=== PATIENT | female | born 1940 | race Caucasian/White ===

== ENCOUNTER 2019-03-12 22:48 | Emergency (ER) | payer MEDICAID, OTHER ==
[~2019-03-12] VITALS: Ht 157.5 cm; Wt 70.3 kg
[~2019-03-12 22:48] MED LIST: ASPI-1154 PO; LOSA100T3 PO; NEBI20TA2 PO
[2019-03-12 23:29] VITALS: BP_SYST 176
[2019-03-13] MEDS ORDERED: KETOROLAC TROMETHAMINE 15 MG VIAL IM ONE
[2019-03-13 01:49] VITALS: BP_SYST 176
== END 2019-03-13 01:49 | disposition home or self-care (01) ==
LOC: SED 22:48
DX: S60.221A Contusion of right hand, initial encounter (principal); S80.02XA Contusion of left knee, initial encounter; I10 Essential (primary) hypertension; E78.5 Hyperlipidemia, unspecified; Z88.8 Allergy status to other drugs, medicaments and biological substances; Z79.899 Other long term (current) drug therapy; W18.40XA Slipping, tripping and stumbling without falling, unspecified, initial encounter; Y93.89 Activity, other specified; Y92.89 Other specified places as the place of occurrence of the external cause; Y99.8 Other external cause status
CPT/HCPCS: 73130; 73564; 96372; 99283; J1885

== ENCOUNTER 2019-07-03 00:55 | Inpatient (IN) | payer OTHER, MEDICAID ==
[~2019-07-03] VITALS: Ht 160 cm; Wt 70.8 kg
[~2019-07-03 00:55] MED LIST changes: -ASPI-1154 PO; +ASPI-1457 PO
[2019-07-03 01:05] VITALS: BP_SYST 170
--- NOTE | 2019-07-03 01:05 | NUR ---
Pt placed to ER bed 02, to gown and desk monitor. Pt c/o H/A x 1 day. Denies N/V, no visual deficits, focal neurodeficits, or weakness reported. Denies C/P or SOB.
--- NOTE | 2019-07-03 01:10 | NUR ---
Dr. James at bedside.
--- NOTE | 2019-07-03 02:10 | NUR ---
Pt c/o nausea. Dr. James notified.
[2019-07-03] MEDS ORDERED: ONDANSETRON HCL 4 MG/2 ML VIAL IVP ONE (02:15)
[2019-07-03] MEDS ORDERED: MORPHINE 2 MG/ML INJ. SYRINGE IVP ONE (02:15)
--- NOTE | 2019-07-03 02:30 | NUR ---
# 20 gauge angiocath placed to LAC. Use of asceptic technique. Opsite placed over site. Blood return noted. Blood for lab drawn from site. Flushed with 10 cc of normal saline. No evidence of infiltration noted. Patient tolerated well.
[2019-07-03 02:48] LABS: BASOPHILS % (AUTO) 0.6 % (0.0-2.0); EOSINOPHILS # (AUTO) 0.2 K/uL (0.0-0.4); EOSINOPHILS % (AUTO) 2.8 % (0.0-4.0); HEMATOCRIT 40.1 % (36-48); HEMOGLOBIN 13.4 g/dL (12.0-16.0); LYMPHOCYTES % (AUTO) 25.4 % (20.5-51.5); MEAN CORPUSCULAR HEMOGLOBIN 31 pg (27-31); MEAN CORPUSCULAR HGB CONC 33 % (32-36); MEAN CORPUSCULAR VOLUME 92 fL (79.0-98.0); MONOCYTES # (AUTO) 0.7 K/uL (0.0-1.0); MONOCYTES % (AUTO) 8.9 % (1.7-9.3); NEUTROPHILS # (AUTO) 4.8 K/uL (1.8-7.7); NEUTROPHILS % (AUTO) 62.3 % (40.0-70.0); PLATELET COUNT (AUTO) 135 K/uL (130-430); RED BLOOD CELL COUNT(AUTO) 4.38 MIL/uL (4.2-6.2); RED CELL DISTRIBUTION WIDTH 15.3 % (9.0-15.0); WHITE BLOOD COUNT (AUTO) 7.7 K/uL (4.8-10.8)
[2019-07-03 03:02] LABS: ANION GAP 7 (5-15); CALCIUM 9.2 mg/dL (8.4-11.0); CHLORIDE 104 mmol/L (98-107); CREATININE 0.75 mg/dL (0.55-1.30); GLUCOSE 110 mg/dL (70-99); POTASSIUM 4.2 mmol/L (3.5-5.1); SODIUM SERUM 141 mmol/L (136-145); UREA NITROGEN, BLOOD 16 mg/dL (8-21)
[2019-07-03 03:06] LABS: PROTHROMBIN TIME 10.4 SECS (9.5-12.5)
[2019-07-03 03:13] LABS: ALANINE AMINOTRANSFERASE 25 U/L (12-78); ALBUMIN 3.8 g/dL (3.4-4.8); ASPARTATE AMINOTRANSFERASE 23 U/L (10-37); TOTAL BILIRUBIN 0.3 mg/dL (0.0-1.0)
[2019-07-03] MEDS ORDERED: ASPIRIN 81 MG TAB.CHEW PO ONE (03:30)
--- NOTE | 2019-07-03 04:00 | NUR ---
Pt resting quietly with eyes closed, even and non-labored respirations. VSS, NAD.
--- NOTE | 2019-07-03 05:00 | NUR ---
Pt to CT via stretcher in stable condition.
--- NOTE | 2019-07-03 05:10 | NUR ---
Pt returns from CT, placed on library monitor. Denies c/o nausea, no C/P or SOB. VSS, NAD. No needs verbalized at this time.
[2019-07-03] MEDS ORDERED: IOHEXOL 350 mgI/mL, 150 ML INFUS..BTL IV ONE (05:21)
--- NOTE | 2019-07-03 06:00 | NUR ---
Pt alert and responsive, denies c/o pain or discomfort, VSS, NAD. No needs verbalized at this time.
--- NOTE | 2019-07-03 07:04 | NUR ---
Spoke with Chelsey, Life Sciences Manager from [facility] and pt information provided.
--- NOTE | 2019-07-03 07:30 | NUR ---
Report from Otto BELL
--- NOTE | 2019-07-03 08:00 | NUR ---
Chelsey residential case manager (C.O) calls back to give authorization number: [id number]
--- NOTE | 2019-07-03 08:15 | NUR ---
Pt report given to RAY Barton.
[2019-07-03] MEDS ORDERED: MAGNESIUM SULFATE 50 ML IV PRN (08:30)
[2019-07-03] MEDS ORDERED: LORazepam 2 MG/ML VIAL IVP PRN (08:30)
[2019-07-03] MEDS ORDERED: DOCUSATE SODIUM 100 MG CAPSULE PO PRN (08:30)
[2019-07-03] MEDS ORDERED: CARISOPRODOL 350 MG TABLET PO ONE (08:30)
[2019-07-03] MEDS ORDERED: ZOLPIDEM TARTRATE 5 MG TABLET PO PRN (08:30)
[2019-07-03] MEDS ORDERED: POTASSIUM CHLORIDE 20 MEQ TAB.PRT.SR PO PRN (08:30)
[2019-07-03] MEDS ORDERED: ONDANSETRON HCL 4 MG/2 ML VIAL IVP PRN (08:30)
[2019-07-03] MEDS ORDERED: MORPHINE 2 MG/ML INJ. SYRINGE IVP PRN (08:30)
[2019-07-03] MEDS ORDERED: MUPIROCIN 2% TOPICAL OINTMENT 22 GM NS PRN (08:30)
[2019-07-03] MEDS: LOSARTAN POTASSIUM 50 MG TABLET (COZAAR) PO SCH (09:00)
[2019-07-03] MEDS: METOPROLOL TARTRATE 50 MG TABLET PO SCH ×3 (09:00→21:00)
[2019-07-03] MEDS: ASPIRIN 81 MG TABLET(ECOTRIN) PO SCH (09:00)
[2019-07-03] MEDS ORDERED: LIP10 PO (09:16)
--- NOTE | 2019-07-03 09:55 | NUR ---
Patient will be admitted to care of Dr Guaman. Admitted to Tele unit. Will go to room 111B. Belongings list completed. Complete and up to date summary report printed. Report to be given at bedside with opportunity for questions. Transfer to Tele 111B via ACLS protocol. Licensed nurse present. IV present no signs or symptoms of infiltration.
--- NOTE | 2019-07-03 10:01 | NUR ---
ADMISSION NOTE Received patient from ER via neil, received report from YENIFER BELL. Patient admitted with diagnosis of PNEUMONIA. Patient oriented to hospital routine, call light, toileting and safety-patient verbalized understanding.
[2019-07-03 10:18] VITALS: BP_SYST 156
[2019-07-03 10:27] LABS: BILIRUBIN,URINE NEGATIVE (NEGATIVE); CLARITY/URINE CLEAR (CLEAR); GLUCOSE,URINE NEGATIVE (NEGATIVE); KETONES,URINE NEGATIVE (NEGATIVE); LEUKOCYTE ESTERASE ,URINE NEGATIVE (NEGATIVE); NITRITE, URINE NEGATIVE (NEGATIVE); PROTEIN URINE NEGATIVE (NEGATIVE); UROBILINOGEN,URINE 0.2 (0.2-1.0)
[2019-07-03 10:36] LABS: BLOOD, URINE TRACE (NEGATIVE); COLOR,URINE YELLOW (YELLOW)
[2019-07-03] MEDS ORDERED: AMLO2.5T2 PO (10:48)
[2019-07-03] MEDS: PIPERACILLIN/TAZO 3.375 GM in NS 50 ML IV SCH ×3 (10:59→20:45)
[2019-07-03 11:00] LABS: BACTERIA,URINE RARE /HPF (None Seen); MUCUS,URINE 1+ /LPF (None Seen); RBC,URINE 0-3 /HPF (0-3); WBC,URINE 0-3 /HPF (0-3)
[2019-07-03] MEDS: HEPARIN SODIUM,PORCINE 5000 UNITS/ML VIAL SUBCUT SCH ×2 (11:00→20:58)
--- NOTE | 2019-07-03 11:38 | NUR ---
Neuro consult: Dr. Pitt at [facility] and aware of consult.
--- NOTE | 2019-07-03 11:43 | NUR ---
Cardiac consult called: for Dr. Vee (Dr. Ruiz second butler), regarding type II [place], ordered by Dr. Guaman, spoke with Megan.
[2019-07-03] MEDS: NACL 0.9% 1,000 ML IV SCH (11:56)
--- NOTE | 2019-07-03 12:04 | NUR ---
pulmo consult Spoke to Cocoluis cartwright, Dr Fay is arch cushion press operator for Dr Luna and made aware.
[2019-07-03 15:48] VITALS: BP_SYST 137
--- NOTE | 2019-07-03 19:35 | NUR ---
OPENING NOTES Pt and endorsement received from day shift nurse. Pt is AAOx4, lying in bed. Son at bedside. Pt in IVF with NS at 50ml/hr and infusing well on left AC G20. No complains of pain at this time. No signs of acute distress or SOB noted. Encouraged to use call light when needed. Safety precautions in place with 2 side rails up, wheels locked, and bed in lowest level. Call light with pt. Will continue to monitor.
[2019-07-03 20:42] VITALS: BP_SYST 143
[2019-07-03] MEDS: MORPHINE 2 MG/ML INJ. SYRINGE IVP PRN (21:16)
--- NOTE | 2019-07-03 21:16 | NUR ---
MED PASS/PAIN MED Pt complained of headache with a scale of 4/10. Morphine 1mg IVP given as ordered. Educated on safety and side effects like dizziness, pt verbalized understanding. Other due meds given except for Metoprolol, pt states she had an allergic reaction in past. Unable to return medicine to [facility] because it was opened, discarded medicine in RX destroyer. Will endorse about Metoprolol medication to day shift.
--- NOTE | 2019-07-04 00:05 | NUR ---
ROUNDS Pt is resting in bed with both eyes closed, with visible chest rise and fall with non-labored breathing noted. No complains of pain and no signs of acute distress noted. IVF infusing well. Safety precautions in place and call light with pt. Will continue to monitor.
[2019-07-04 01:04] VITALS: BP_SYST 131
--- NOTE | 2019-07-04 01:30 | NUR ---
ROUNDING/IV REPLACEMENT PATIENT IV WAS LEAKING. IV WAS TAKEN OUT AND TIP WAS INTACT. NO SIGNS OF ACTIVE BLEED. NEW IV WAS INSERTED. PATIENT TOLERATED WELL. WILL CONTINUE TO MONITOR. Addendum: 07/05/19 at 0503 by Dagoberto Reyna RN WRONG DATE
[2019-07-04] MEDS: PIPERACILLIN/TAZO 3.375 GM in NS 50 ML IV SCH ×2 (02:16→08:05)
--- NOTE | 2019-07-04 02:16 | NUR ---
ROUNDS Pt is AAOx4 and lying in bed. No complains of pain and no signs of acute distress noted. Encouraged pt to rest and sleep. IVF infusing well. Safety precautions in place and call light with pt. Will continue to monitor.
--- NOTE | 2019-07-04 04:22 | NUR ---
ROUNDS Pt is resting in bed with both eyes closed, with visible chest rise and fall with non-labored breathing noted. Pt is easily arousable. No signs of acute distress noted. No needs at this time. IVF infusing well. Safety precautions in place and call light with pt. Will continue to monitor.
[2019-07-04] MEDS: NACL 0.9% 1,000 ML IV SCH (04:30)
[2019-07-04 06:42] LABS: BASOPHILS % (AUTO) 0.5 % (0.0-2.0); EOSINOPHILS # (AUTO) 0.1 K/uL (0.0-0.4); EOSINOPHILS % (AUTO) 2.3 % (0.0-4.0); HEMATOCRIT 38.3 % (36-48); HEMOGLOBIN 12.7 g/dL (12.0-16.0); LYMPHOCYTES # (AUTO) 1.7 K/uL (1.0-5.5); MEAN CORPUSCULAR HEMOGLOBIN 31 pg (27-31); MEAN CORPUSCULAR HGB CONC 33 % (32-36); MEAN CORPUSCULAR VOLUME 92 fL (79.0-98.0); MONOCYTES # (AUTO) 0.6 K/uL (0.0-1.0); MONOCYTES % (AUTO) 10.1 % (1.7-9.3); NEUTROPHILS # (AUTO) 3.2 K/uL (1.8-7.7); NEUTROPHILS % (AUTO) 57.1 % (40.0-70.0); PLATELET COUNT (AUTO) 126 K/uL (130-430); RED BLOOD CELL COUNT(AUTO) 4.15 MIL/uL (4.2-6.2); WHITE BLOOD COUNT (AUTO) 5.5 K/uL (4.8-10.8)
--- NOTE | 2019-07-04 06:44 | NUR ---
CLOSING NOTES Pt is resting in bed with both eyes closed, with visible chest rise and fall with non-labored breathing noted. No complains of pain or discomfort at this time. No signs of acute distress or SOB noted. All needs attended throughout the shift. IVF infusing well. Safety precautions maintained with 2 side rails up, wheels locked, and bed in lowest level. Call light with pt. Will continue to monitor.
[2019-07-04 06:57] LABS: ANION GAP 4 (5-15); CALCIUM 8.8 mg/dL (8.4-11.0); CHLORIDE 105 mmol/L (98-107); CHOLESTEROL 176 mg/dL (<200); CREATININE 1.04 mg/dL (0.55-1.30); GLUCOSE 93 mg/dL (70-99); HDL CHOLESTEROL 60 mg/dL (>55); LDL CHOLESTEROL 100 mg/dL (<100); POTASSIUM 3.9 mmol/L (3.5-5.1); SODIUM SERUM 137 mmol/L (136-145); TRIGLYCERIDES 62 mg/dL (30-150); UREA NITROGEN, BLOOD 18 mg/dL (8-21)
[2019-07-04 08:05] VITALS: BP_SYST 137
--- NOTE | 2019-07-04 08:05 | NUR ---
Routine Patient resting comfortably in bed with no complaint of pain or discomfort. Scheduled medications given per order. Patient stable at this time.
[2019-07-04] MEDS: ASPIRIN 81 MG TABLET(ECOTRIN) PO SCH (08:06)
[2019-07-04] MEDS: LOSARTAN POTASSIUM 50 MG TABLET (COZAAR) PO SCH (08:06)
[2019-07-04] MEDS: METOPROLOL TARTRATE 50 MG TABLET PO SCH ×2 (08:06→21:00)
[2019-07-04] MEDS: HEPARIN SODIUM,PORCINE 5000 UNITS/ML VIAL SUBCUT SCH ×2 (08:10→21:49)
--- NOTE | 2019-07-04 12:02 | NUR ---
CONSULTATION PAGED/CALLED Reason for Consultation: FEVERS,NECK RIGIDITY Person Who was Notified: INEZ Consulting Physician: Clothes Drier Repairer Specialty: Ordering Physician:
[2019-07-04 12:15] VITALS: BP_SYST 128
[2019-07-04] MEDS: ACYCLOVIR IV 500 MG in D5W 100 ML IV SCH (14:47)
[2019-07-04 16:25] VITALS: BP_SYST 127
[2019-07-04 19:30] VITALS: BP_SYST 154
--- NOTE | 2019-07-04 19:50 | NUR ---
INITIAL ASSESSMENT AT INITIAL ASSESSMENT PATIENT IS STABLE AND LAYING IN BED. FAMILY MEMBER IS BY BEDSIDE. NO SIGNS OR SYMPTOMS OF RESPIRATORY DISTRESS NOTED. EDUCATED PATIENT WIND PROJECTS SUPERVISOR LIGHT. PATIENT SUCCESSFULLY DEMONSTRATES USAGE OF CALL LIGHT. PLAN OF CARE DISCUSSED WITH PATIENT AND FAMILY AT THIS TIME. BED IS LOCKED, ALARMED, AND AT THE LOWEST POSITION. PATIENT VERBALIZED NO PAIN AT THIS MOMENT. FALL, SAFETY, AND RESPIRATORY PRECAUTION WILL BE PLACED THROUGHOUT THE SHIFT.
--- NOTE | 2019-07-04 21:45 | NUR ---
ROUNDING PATIENT IS STABLE AND TALKING TO FAMILY MEMBER. NO SIGNS OR SYMPTOMS OF RESPIRATORY DISTRESS NOTED. CALL LIGHT IN REACH. BED LOCKED, ALARMED, AT THE LOWEST POSITION. WILL CONTINUE TO MONITOR.
[2019-07-04] MEDS: ACETAMINOPHEN 325 MG TABLET PO PRN (23:06)
[2019-07-05] VITALS: BP_SYST 146
[2019-07-05] MEDS: ACYCLOVIR IV 500 MG in D5W 100 ML IV SCH ×4 (00:20→22:00)
[2019-07-05] MEDS: NACL 0.9% 1,000 ML IV SCH ×2 (01:10→20:30)
--- NOTE | 2019-07-05 01:30 | NUR ---
ROUNDING/IV REPLACEMENT PATIENT IV WAS LEAKING. IV WAS TAKEN OUT AND TIP WAS INTACT. NO SIGNS OF ACTIVE BLEED. NEW IV WAS INSERTED. PATIENT TOLERATED WELL. WILL CONTINUE TO MONITOR.
--- NOTE | 2019-07-05 03:30 | NUR ---
ROUNDING PATIENT IS STABLE AND SLEEPING. NO SIGNS OR SYMPTOMS OF RESPIRATORY DISTRESS NOTED. CALL LIGHT IN REACH. BED LOCKED, ALARMED, AT THE LOWEST POSITION. WILL CONTINUE TO MONITOR.
[2019-07-05] MEDS: ACETAMINOPHEN 325 MG TABLET PO PRN (05:52)
--- NOTE | 2019-07-05 06:40 | NUR ---
CLOSING NOTES PATIENT IS LAYING IN BED. NO SIGNS OR SYMPTOMS OF RESPIRATORY DISTRESS NOTED. CALL LIGHT IS WITHIN REACH. BED IS LOCKED, ALARMED, AND AT THE LOWEST POSITION. PATIENT HEADACHE HAS BEEN MANAGED THROUGHOUT THE SHIFT. FALL, SAFETY, AND ASPIRATION PRECAUTION HAS BEEN PLACED THROUGHOUT THE SHIFT. WILL CONTINUE TO MONITOR UNTIL AM SHIFT REPORT IS GIVEN TO AM NURSE.
[2019-07-05 07:24] LABS: BASOPHILS % (AUTO) 0.6 % (0.0-2.0); EOSINOPHILS # (AUTO) 0.2 K/uL (0.0-0.4); EOSINOPHILS % (AUTO) 4.3 % (0.0-4.0); HEMATOCRIT 37.4 % (36-48); HEMOGLOBIN 12.5 g/dL (12.0-16.0); LYMPHOCYTES # (AUTO) 1.7 K/uL (1.0-5.5); LYMPHOCYTES % (AUTO) 34.8 % (20.5-51.5); MEAN CORPUSCULAR HEMOGLOBIN 31 pg (27-31); MEAN CORPUSCULAR HGB CONC 33 % (32-36); MEAN CORPUSCULAR VOLUME 92 fL (79.0-98.0); MONOCYTES # (AUTO) 0.5 K/uL (0.0-1.0); MONOCYTES % (AUTO) 9.5 % (1.7-9.3); NEUTROPHILS # (AUTO) 2.5 K/uL (1.8-7.7); NEUTROPHILS % (AUTO) 50.8 % (40.0-70.0); PLATELET COUNT (AUTO) 125 K/uL (130-430); RED BLOOD CELL COUNT(AUTO) 4.08 MIL/uL (4.2-6.2); RED CELL DISTRIBUTION WIDTH 14.6 % (9.0-15.0)
[2019-07-05 07:55] VITALS: BP_SYST 151
--- NOTE | 2019-07-05 07:55 | NUR ---
INITIAL ROUNDS Received pt AAOx4, no s/s resp distress, no c/o pain or discomfort. Plan of care for the day reviewed with pt-pt verbalized her understanding. IVF infusing well to left hand at ordered rate with no s/s infiltration to site. Pt ambulated to the bathroom with steady gait, voided. Pain management, disease process, skin and safety discussed-teach back done. Call light within reach.
[2019-07-05 09:00] LABS: ANION GAP 5 (5-15); CALCIUM 8.7 mg/dL (8.4-11.0); CHLORIDE 105 mmol/L (98-107); CREATININE 0.79 mg/dL (0.55-1.30); GLUCOSE 106 mg/dL (70-99); POTASSIUM 3.8 mmol/L (3.5-5.1); SODIUM SERUM 138 mmol/L (136-145); UREA NITROGEN, BLOOD 18 mg/dL (8-21)
--- NOTE | 2019-07-05 10:30 | NUR ---
Nutrition Update Levy Scale 17 noted. Pt admitted for pneumonia. Diet: cardiac BMI: 27.6 kg/m2 RD to follow per nutrition care standards.
--- NOTE | 2019-07-05 10:40 | NUR ---
TO MRI Pt left floor via wheelchair to MRI in no distress.
[2019-07-05 12:05] VITALS: BP_SYST 177
--- NOTE | 2019-07-05 12:05 | NUR ---
RESUME CARE Received the report from Concepcion at bedside. Patient resting in the bed. No acute distress. AAO X 4. Patient just back from MRI of head. Per Concepcion morning meds not given yet but she will give it. Skin warm and dry to touch. IV intact to left hand, no redness, no swelling, patent. Family at bedside. Discussed safety issue, use call light when needs help, and plan of care, verbally understanding. Safety measure maintained. Bed locked in low position, side rails up. Call light within reached. SBAR received and will resume the care and continue to monitor.
[2019-07-05] MEDS: LOSARTAN POTASSIUM 50 MG TABLET (COZAAR) PO SCH (12:14)
[2019-07-05] MEDS: ASPIRIN 81 MG TABLET(ECOTRIN) PO SCH (12:15)
[2019-07-05] MEDS: HEPARIN SODIUM,PORCINE 5000 UNITS/ML VIAL SUBCUT SCH ×2 (12:22→20:40)
[2019-07-05] MEDS: MORPHINE 2 MG/ML INJ. SYRINGE IVP PRN (12:24)
--- NOTE | 2019-07-05 12:45 | NUR ---
HANDS OFF Report given to registry, Luciana at bedside. Patient resting in the bed. No acute distress. Awake Luciana will continue to take care her. Safety measure maintained. Call light within reached. SBAR given to Luciana.
--- NOTE | 2019-07-05 12:50 | NUR ---
PATIENT RECEIVED IN STABLE CONDITIONS. ASSESSED PT: HEART: RATE AND RHYTHM WNL, LUNGS: BREATH SOUNDS WERE CLEARED THROUGHOUT, PT STATED THAT HER COUGH HAS REDUCED. IV IS PATENT IN LEFT HAND. PATIENT MADE AWARE OF HER PLAN OF CARE
--- NOTE | 2019-07-05 13:25 | NUR ---
DC Planning: late entry (1209): notified pt about transfer to insurance network per [facility]. The pt agreed with the transfer. Informed for in net work hp are, Dani , Kevin , Bernardino Nunes . Cm to updated pt once got more info from [employer] piano case and bench assembler. >> per Soheila /Marcela TALLEY # [phone], the pt will be transferred to [facility], pending room assignment. She will be calling nursing unit to to the transfer instruction. She expected to transfer the pt next shift. The ambulance transfer was arranged thru Stephanie, [facility] transfer tel # [phone] and is on will call trip # [phone]. Addendum: 07/05/19 at 1338 by Pedro Landa RN >> RAY Javier/Matteo ammunition officer made aware of the above info.
--- NOTE | 2019-07-05 13:46 | NUR ---
DC Planning: Transfer to [facility]: Per Soheila given bed assignment room 221-2, RN to report # [phone]. MARIYA Loredo transfer tel # [phone] booking trip # [phone] , picked edge sewing machine operator time at 1600. Matteo patrol community service officer to assist with the discharge package and to notify the on duty nurse. Cm notified the pt and her spouse at beside as well. Addendum: 07/05/19 at 1539 by Pedro Landa RN Per Soheila: changing the transfer time to 8 pm. -- RAY Prabhakar made aware >> Pt and her son/Neto (who was at bedside) made aware. Both agreed with the transfer at 8 pm today.
[2019-07-05 14:18] VITALS: BP_SYST 177
--- NOTE | 2019-07-05 14:38 | NUR ---
GAVE REPORT TO RECEIVING RAY LANE FROM [facility]. ALL QUESTIONS ANSWERED AND PHONE NUMBER WAS GIVEN TO HER IN CASE SHE HAS FURTHER QUESTIONS
[2019-07-05 16:14] VITALS: BP_SYST 151
--- NOTE | 2019-07-05 16:18 | NUR ---
PATIENT AGREE AND SIGNED THE TRANSFER FORM AND THE DC PACKET. SON AT THE BEDSIDE AND WAS ALSO MADE AWARE
--- NOTE | 2019-07-05 18:14 | NUR ---
PT SITTING IN BED. EATING DINNER. NO COMPLAINTS AT THIS TIME. PT MADE AWARE THAT THE AMBULANCE WILL COME PICK HER UP BY 8PM
--- NOTE | 2019-07-05 19:11 | NUR ---
GAVE REPORT TO MOLECULAR PATHOLOGIST RN, FRANCESCA RN. RECEIVING RN MADE AWARE OF PT GETTING DISCHARGE TO [facility] AND PROSTHETIC TECHNICIAN TIME IS AT 8PM ENDORSED PT IN STABLE CONDITIONS. ALL QUESTIONS ANSWERED
[2019-07-05] MEDS ORDERED: hydrALAZINE HCL 20 MG/ML VIAL IVP SCH (20:30)
--- NOTE | 2019-07-05 21:07 | NUR ---
AMBULANCE ARRANGED CALLED [facility] ([phone]) SPOKE WITH MARISA, PATIENT [facility]. CIFUENTES @ 2200 Addendum: 07/05/19 at 2205 by Noemí Marie [facility]/ [facility] ([phone])
--- NOTE | 2019-07-05 22:28 | NUR ---
Ambulance here for transfer. Belongings taken. Son at the bedside.
[2019-07-06 09:09] LABS: WEST NILE VIRUS, IgG, SERUM Negative (Negative)
== END 2019-07-05 22:28 | disposition short-term general hospital (02) | DRG 97 ==
LOC: SED 00:55 → STU 08:23 → SMU 07-05 12:58
PROVIDERS: ADMIT General Practice; ATTEND General Practice
DX: G03.0 Nonpyogenic meningitis (principal); J69.0 Pneumonitis due to inhalation of food and vomit; I21.A1 Myocardial infarction type 2; I10 Essential (primary) hypertension; E78.5 Hyperlipidemia, unspecified; G43.919 Migraine, unspecified, intractable, without status migrainosus; M47.892 Other spondylosis, cervical region; G44.219 Episodic tension-type headache, not intractable; Z88.8 Allergy status to other drugs, medicaments and biological substances; Z79.899 Other long term (current) drug therapy; Z90.49 Acquired absence of other specified parts of digestive tract; Z90.722 Acquired absence of ovaries, bilateral; Z79.82 Long term (current) use of aspirin; Z84.89 Family history of other specified conditions
CPT/HCPCS: 36415; 36600; 70450-TC; 70551; 71045; 71275; 80048; 80053; 80061; 81000-TC; 82803-TC; 83036; 83605; 83735-TC; 83880; 84484; 85025; 85379; 85610-TC; 85651-TC; 85730-TC; 86694; 86788; 86789; 87040-TC; 93005; 93306; 93970; 96365; 96375; 96376; 99285; G0378; J0133; J0360; J0696; J1644; J1956; J2270; J2405; J2543; J7030; J7060; Q9967

== ENCOUNTER 2022-07-08 11:19 | Inpatient (IN) | payer OTHER, MEDICAID ==
[~2022-07-08] VITALS: Ht 157.5 cm; Wt 73.0 kg
[~2022-07-08 11:19] MED LIST changes: -NEBI20TA2 PO
[2022-07-08 11:29] VITALS: BP_SYST 167
--- NOTE | 2022-07-08 11:45 | NUR ---
DR MENCHACA IN ROOM FOR EXAM
[2022-07-08 12:25] LABS: ANION GAP 9 (5-15); BASOPHILS % (AUTO) 0.6 % (0.0-2.0); CALCIUM 9.5 mg/dL (8.4-11.0); CHLORIDE 105 mmol/L (98-107); EOSINOPHILS # (AUTO) 0.2 K/uL (0.0-0.4); GLUCOSE 101 mg/dL (70-99); HEMATOCRIT 39.2 % (36-48); LYMPHOCYTES % (AUTO) 35.3 % (20.5-51.5); MEAN CORPUSCULAR HEMOGLOBIN 30 pg (27-31); MEAN CORPUSCULAR HGB CONC 33 % (32-36); MEAN CORPUSCULAR VOLUME 89 fL (79.0-98.0); MONOCYTES # (AUTO) 0.4 K/uL (0.0-1.0); MONOCYTES % (AUTO) 7.4 % (1.7-9.3); NEUTROPHILS % (AUTO) 53.7 % (40.0-70.0); PLATELET COUNT (AUTO) 136 K/uL (130-430); UREA NITROGEN, BLOOD 23 mg/dL (8-21); WHITE BLOOD COUNT (AUTO) 5.5 K/uL (4.8-10.8)
[2022-07-08 12:33] LABS: ALANINE AMINOTRANSFERASE 19 U/L (12-78); ALBUMIN 3.5 g/dL (3.4-4.8); ASPARTATE AMINOTRANSFERASE 22 U/L (10-37); TOTAL BILIRUBIN 0.4 mg/dL (0.0-1.0)
--- NOTE | 2022-07-08 12:54 | NUR ---
PT COMES TO ER WITH SUDDEN ONSET OF ANTERIOR CHEST WALL PAIN RADIATING TO BACK THIS AM WHILE DOING NOTHING, PT FROM HOME. PT CURRENTLY, IN NAD. RESP EVEN AND UNLABORED,ON RA @99%. DENIES CP AT THIS TIME, NO SOB. REPORTS MILD DIZZINESS. SKIN W/D/I. SAFETY PRECUATIONS IN PLACE, WILL CONT TO MONITOR.
[2022-07-08] MEDS ORDERED: ASPIRIN 81 MG TAB.CHEW PO ONE (13:30)
[2022-07-08] MEDS ORDERED: NITROGLYCERIN 1 INCH (GM) OINT. TP ONE (13:30)
--- NOTE | 2022-07-08 14:30 | NUR ---
PT DENIES ANY CHEST PAIN AT THIS TIME, NITRO HELD.
[2022-07-08] MEDS ORDERED: LOSA100T23 PO (14:54)
[2022-07-08] MEDS ORDERED: NEBI10TA2 PO (14:54)
[2022-07-08] MEDS ORDERED: AMLO2.5T50 PO (14:54)
[2022-07-08] MEDS ORDERED: ATOR10TA68 PO (14:54)
--- NOTE | 2022-07-08 14:54 | NUR ---
Medication reconciliation completed with information provided by PATIENT. Any prior medication reconciliation on file was reviewed and corrected.
--- NOTE | 2022-07-08 17:04 | NUR ---
Admit bed requested Patient will be admitted to care of . Admitted to TELEMETRY unit. Diagnosis CHEST PAIN Inpatient (Yes or No) YES Observation (Yes or No) NO Orientation concerns or request close to nursing station (Yes or No) NO Covid Status NEG On vent or bipap NO Isolation requirements NO Needs a sitter NO From Home (Yes or if No enter name of facility) YES Requires Dialysis (Yes or No) NO Med Rec Completed (Yes of No) YES
--- NOTE | 2022-07-08 17:17 | NUR ---
NOO ACUTE CHNAGES IN CONDITION, PT IN NAD. DTR ATBEDSIDE. PT DENIES ANY CP OR SOB.
--- NOTE | 2022-07-08 18:06 | NUR ---
DINNER TRAY ORDERED FOR PT, NO ACUTE CHNAGES IN CONDITION. VSS. FAMILY AT BEDSIDE
--- NOTE | 2022-07-08 19:04 | NUR ---
Patient will be admitted to care of DR . Admitted to unit. Will go to room . Belongings list completed. Complete and up to date summary report printed. SBAR report to be given at bedside with opportunity for questions.
--- NOTE | 2022-07-08 19:05 | NUR ---
ADMISSION NOTE Received patient from ER via gurney. Patient admitted with diagnosis of CHEST PAIN. Patient is awake, alert, oriented X 4. Patient oriented to hospital room, call light, toileting, pain management and safety-teach back done. Patient informed that their room number is 112A. Personal belongings checked and Belongings List documented. Call light within reach.
[2022-07-08 19:47] VITALS: BP_SYST 191
--- NOTE | 2022-07-08 19:51 | NUR ---
DAUGHTER CELL PRADEEP AGUERO [phone]
[2022-07-08 20:00] VITALS: BP_SYST 147
--- NOTE | 2022-07-08 20:14 | NUR ---
Paged Sayed television repairman for Dr. Osborn s/monroe Valdez
[2022-07-08] MEDS ORDERED: LOSARTAN POTASSIUM 50 MG TABLET (COZAAR) ONE (20:58)
[2022-07-08] MEDS ORDERED: NON-FORMULARY MEDICATION (Losartan Potassium 100 MG) PO SCH (21:00)
[2022-07-08] MEDS: amLODIPine BESYLATE 5 MG TABLET PO SCH (21:00)
[2022-07-08] MEDS: LOSARTAN POTASSIUM 50 MG TABLET (COZAAR) PO SCH (21:04)
[2022-07-09 00:41] VITALS: BP_SYST 155
[2022-07-09 07:40] VITALS: BP_SYST 137
--- NOTE | 2022-07-09 07:40 | NUR ---
OPENING NOTE Patient in bed resting. A/O x4. Vitals taken and recorded. IV to LAC 20g patent and on SL. Breathing noted even and unlabored. No pain noted at this time. All needs met at this time. Call light within reach, safety precautions in place, Bed locked in lowest position. Will continue to monitor.
[2022-07-09] MEDS: ATORVASTATIN 10 MG TABLET PO SCH (08:31)
[2022-07-09] MEDS: amLODIPine BESYLATE 5 MG TABLET PO SCH ×2 (08:32→22:16)
[2022-07-09 11:20] VITALS: BP_SYST 139
--- NOTE | 2022-07-09 12:15 | NUR ---
PATIENT ROUNDS Patient in bed resting. Breathing noted even and unlabored. No pain noted at this time. All needs met at this time. Call light within reach, safety precautions in place, Bed locked in lowest position. Will continue to monitor.
--- NOTE | 2022-07-09 16:15 | NUR ---
PATIENT ROUNDS Patient in bed resting. Breathing noted even and unlabored. No pain noted at this time. Elevated Troponin level called in from lab and paged MD Vee to report. All needs met at this time. Call light within reach, safety precautions in place, Bed locked in lowest position. Will continue to monitor.
[2022-07-09 18:14] VITALS: BP_SYST 133
--- NOTE | 2022-07-09 18:54 | NUR ---
CLOSING NOTE Patient in bed resting. A/O x4. IV to LAC 20g patent and on SL. Breathing noted even and unlabored. No pain noted at this time. All needs met at this time. Call light within reach, safety precautions in place, Bed locked in lowest position. Will endorse to nightshift nurse.
--- NOTE | 2022-07-09 19:32 | NUR ---
Dietitian Recommendations * Continue Na2GM diet per MD order * Consider Cardiac diet if nutrition-related lab values are altered * Encourage good PO intakes Please refer to nutrition assessment for details, thanks! CC, MPH, RDN
[2022-07-09 20:00] VITALS: BP_SYST 143
[2022-07-09] MEDS: LOSARTAN POTASSIUM 50 MG TABLET (COZAAR) PO SCH (22:15)
[2022-07-10 00:55] VITALS: BP_SYST 140
--- NOTE | 2022-07-10 01:25 | NUR ---
NOTIFIED KIMANI ULLOA R/T CRITICAL LAB RESULTS: TROPONIN 141, NO CHANGE FROM PREVIOUS TROPONIN LEVEL. STATED HE WOULD CONSULT WITH CARDIOLOGY IN AM, NO NEW ORDERS AT THIS TIME.
--- NOTE | 2022-07-10 04:10 | NUR ---
PATIENT IN BED RESTING, VSS, NO C/O PAIN, PIV L AC 20G SL. PATIENT PERFORMED ORAL CARE INDEPENDENTLY. PATIENT TOOL ALL HS MEDS AND TOLERATED WELL.
[2022-07-10 07:40] VITALS: BP_SYST 120
--- NOTE | 2022-07-10 07:40 | NUR ---
OPENING NOTE Patient in bed resting. A/O x4, French/Central African speaking. Vitals taken and recorded. IV to LAC 20g patent and on SL. Breathing noted even and unlabored. No pain noted at this time. All needs met at this time. Call light within reach, safety precautions in place, Bed locked in lowest position. Will continue to monitor.
[2022-07-10] MEDS: ATORVASTATIN 10 MG TABLET PO SCH (08:44)
[2022-07-10] MEDS: amLODIPine BESYLATE 5 MG TABLET PO SCH (08:44)
[2022-07-10] MEDS ORDERED: ASPIRIN 81 MG TAB.CHEW PO ONE (10:00)
[2022-07-10 11:48] VITALS: BP_SYST 130
[2022-07-10] MEDS ORDERED: ASPI-1393 PO (13:21)
[2022-07-10 13:52] VITALS: BP_SYST 130
--- NOTE | 2022-07-10 14:17 | NUR ---
D/C Patient Patient given medication reconciliation form and D/C instructions. Exit Care provided. Patient verbalized understanding. MD Osborn discussed with patient the results and treatment provided. Ambulatory with steady gait for discharge to home. Patient in stable condition, ID band removed. IV catheter removed, intact and dressing applied, no active bleeding. Rx of given. Patient educated on pain management. All belongings sent with patient.
[2022-07-11] MEDS ORDERED: ASPIRIN 81 MG TAB.CHEW PO SCH (09:00)
== END 2022-07-10 14:17 | disposition home or self-care (01) | DRG 311 ==
LOC: SED 11:19 → STU 14:23
PROVIDERS: ADMIT Internal Medicine; ATTEND Internal Medicine
DX: I24.8 Other forms of acute ischemic heart disease (principal); E78.5 Hyperlipidemia, unspecified; Z20.822 Contact with and (suspected) exposure to COVID-19; I10 Essential (primary) hypertension; Z88.8 Allergy status to other drugs, medicaments and biological substances; Z79.899 Other long term (current) drug therapy; Z90.49 Acquired absence of other specified parts of digestive tract; Z79.1 Long term (current) use of non-steroidal anti-inflammatories (NSAID); Z79.82 Long term (current) use of aspirin
CPT/HCPCS: 36415; 71045; 80053; 83880; 84484; 85025; 93005; 93306; 99285; G0378

== ENCOUNTER 2022-12-07 13:23 | Emergency (ER) | payer OTHER, MEDICAID ==
[~2022-12-07] VITALS: Ht 157.5 cm; Wt 79.8 kg
[~2022-12-07 13:23] MED LIST changes: +AMLO2.5T50 PO; +ASPI-1393 PO; -ASPI-1457 PO; +ATOR10TA68 PO; +LOSA100T23 PO; -LOSA100T3 PO; +NEBI10TA2 PO
[2022-12-07 13:43] VITALS: BP_SYST 178
[2022-12-07] MEDS ORDERED: KETOROLAC TROMETHAMINE 60 MG/2 ML VIAL IM ONE (14:15)
[2022-12-07 15:10] LABS: BILIRUBIN,URINE NEGATIVE (NEGATIVE); BLOOD, URINE NEGATIVE (NEGATIVE); CLARITY/URINE CLEAR (CLEAR); COLOR,URINE YELLOW (YELLOW); GLUCOSE,URINE NEGATIVE (NEGATIVE); KETONES,URINE NEGATIVE (NEGATIVE); LEUKOCYTE ESTERASE ,URINE NEGATIVE (NEGATIVE); NITRITE, URINE NEGATIVE (NEGATIVE); PROTEIN URINE NEGATIVE (NEGATIVE); UROBILINOGEN,URINE 0.2 (0.2-1.0)
[2022-12-07] MEDS ORDERED: DICL20GE TP (16:49)
[2022-12-07] MEDS ORDERED: ACYC-133 PO (16:49)
[2022-12-07] MEDS ORDERED: DICL75TA5 PO (16:49)
[2022-12-07 17:21] VITALS: BP_SYST 118
== END 2022-12-07 17:16 | disposition home or self-care (01) ==
LOC: SED 13:23
DX: M54.50 Low back pain, unspecified (principal); B02.8 Zoster with other complications; B01.9 Varicella without complication; I10 Essential (primary) hypertension; Z88.5 Allergy status to narcotic agent; Z88.8 Allergy status to other drugs, medicaments and biological substances; Z79.899 Other long term (current) drug therapy
CPT/HCPCS: 99285; 72131; 76376; 96372; 81003; J1885

== ENCOUNTER 2022-12-20 06:33 | Emergency (ER) | payer OTHER, MEDICAID ==
[~2022-12-20] VITALS: Ht 157.5 cm; Wt 68.9 kg
[~2022-12-20 06:33] MED LIST changes: +ACYC-133 PO; +DICL20GE TP; +DICL75TA5 PO
[2022-12-20 06:51] VITALS: BP_SYST 161
[2022-12-20] MEDS ORDERED: LIDOCAINE PATCH 5% 1 EA TP ONE (07:30)
[2022-12-20] MEDS ORDERED: ACETAMINOPHEN 500 MG TABLET PO ONE (07:30)
[2022-12-20 07:36] LABS: BASOPHILS # (AUTO) 0.1 K/uL (0.0-0.2); BASOPHILS % (AUTO) 0.8 % (0.0-2.0); EOSINOPHILS # (AUTO) 0.2 K/uL (0.0-0.4); EOSINOPHILS % (AUTO) 2.2 % (0.0-4.0); HEMATOCRIT 40.2 % (36-48); LYMPHOCYTES # (AUTO) 1.8 K/uL (1.0-5.5); LYMPHOCYTES % (AUTO) 25.4 % (20.5-51.5); MEAN CORPUSCULAR HEMOGLOBIN 29 pg (27-31); MEAN CORPUSCULAR HGB CONC 32 % (32-36); MEAN CORPUSCULAR VOLUME 90 fL (79.0-98.0); MONOCYTES # (AUTO) 0.5 K/uL (0.0-1.0); MONOCYTES % (AUTO) 7.6 % (1.7-9.3); NEUTROPHILS # (AUTO) 4.7 K/uL (1.8-7.7); PLATELET COUNT (AUTO) 156 K/uL (130-430); RED BLOOD CELL COUNT(AUTO) 4.49 MIL/uL (4.2-6.2); WHITE BLOOD COUNT (AUTO) 7.3 K/uL (4.8-10.8)
[2022-12-20 07:37] LABS: ALANINE AMINOTRANSFERASE 15 U/L (12-78); ALBUMIN 3.3 g/dL (3.4-4.8); ANION GAP 7 (5-15); ASPARTATE AMINOTRANSFERASE 12 U/L (10-37); CALCIUM 9.2 mg/dL (8.4-11.0); CHLORIDE 106 mmol/L (98-107); CREATININE 0.85 mg/dL (0.55-1.30); GLUCOSE 114 mg/dL (70-99); TOTAL BILIRUBIN 0.4 mg/dL (0.0-1.0); UREA NITROGEN, BLOOD 18 mg/dL (8-21)
[2022-12-20] MEDS ORDERED: ACET-2634 PO (10:22)
[2022-12-20 10:51] LABS: BILIRUBIN,URINE NEGATIVE (NEGATIVE); BLOOD, URINE NEGATIVE (NEGATIVE); CLARITY/URINE CLEAR (CLEAR); COLOR,URINE YELLOW (YELLOW); GLUCOSE,URINE NEGATIVE (NEGATIVE); KETONES,URINE NEGATIVE (NEGATIVE); LEUKOCYTE ESTERASE ,URINE NEGATIVE (NEGATIVE); NITRITE, URINE NEGATIVE (NEGATIVE); PROTEIN URINE NEGATIVE (NEGATIVE); UROBILINOGEN,URINE 0.2 (0.2-1.0)
[2022-12-20 11:04] VITALS: BP_SYST 112
== END 2022-12-20 11:06 | disposition home or self-care (01) ==
LOC: SED 06:33
DX: B02.9 Zoster without complications (principal); R51.9 Headache, unspecified; M54.2 Cervicalgia; I10 Essential (primary) hypertension; Z88.5 Allergy status to narcotic agent; Z88.8 Allergy status to other drugs, medicaments and biological substances; Z79.899 Other long term (current) drug therapy
CPT/HCPCS: 36415; 70450-TC; 76376; 80053; 81003; 85025; 99284